=== PATIENT | male | born 1955 | race African-American/Black ===

== ENCOUNTER 2021-05-06 15:48 | Emergency (ER) | payer MEDICARE, MEDICAID ==
[~2021-05-06] VITALS: Ht 177.8 cm; Wt 74.8 kg
[2021-05-06 16:32] LABS: BASOPHILS % 0.1 % (0.0-2.0); EOSINOPHILS % 0.1 % (0.0-5.0); HEMATOCRIT. 48.8 % (42.0-52.0); HEMOGLOBIN. 16.6 g/dL (14.0-18.0); LYMPHOCYTES % 19.5 % (20.0-50.0); MEAN CORPUSCULAR HEMOGLOBIN 29.5 pg (28.0-32.0); MEAN CORPUSCULAR VOLUME 86.7 fL (80.0-94.0); MEAN PLATELET VOLUME 7.8 fl (7.4-10.4); MONOCYTES % 8.8 % (2.0-8.0); NEUTROPHILS % 71.5 % (40.0-76.0); PLATELET 234 x1000/uL (130-400); RED BLOOD CELL COUNT 5.62 mill/uL (4.7-6.1); RED CELL DISTRIBUTION WIDTH 15.7 % (11.6-14.6)
[2021-05-06 16:35] LABS: CHLORIDE 106 mEq/L (98-107)
[2021-05-06 16:39] LABS: ETHANOL BLOOD < 10 mg/dL
[2021-05-06 16:44] LABS: CREATINE KINASE 334 IU/L (39-308)
[2021-05-06 17:18] LABS: CLARITY URINE CLEAR (CLEAR); COLOR URINE YELLOW (YELLOW); KETONES URINE 1+ (NEGATIVE); LEUKOCYTE ESTERASE URINE NEGATIVE (NEGATIVE); NITRITE URINE NEGATIVE (NEGATIVE); OCCULT BLOOD URINE 1+ (NEGATIVE); PH URINE 5.5 (4.5-8.0); PROTEIN URINE 2+ (NEGATIVE); SPECIFIC GRAVITY URINE 1.029 (1.005-1.030)
[2021-05-06] MEDS ORDERED: ASPIRIN 600MG SUPP PR ONE (17:30)
[2021-05-06] MEDS ORDERED: HYDRALAZINE 20MG/ML VIAL IV ONE (17:30)
[2021-05-06 17:38] LABS: *BARBITURATES SCREEN URINE NEGATIVE (NEGATIVE)
[2021-05-06 17:39] LABS: *AMPHETAMINES SCREEN URINE NEGATIVE (NEGATIVE); *BENZODIAZEPINES SCREEN URINE NEGATIVE (NEGATIVE); *COCAINE SCREEN URINE NEGATIVE (NEGATIVE); CANNABINOID URINE SCREEN PRESUMTIVE POSITIVE (NEGATIVE); METHADONE URINE SCREEN NEGATIVE (NEGATIVE); OPIATES URINE SCREEN NEGATIVE (NEGATIVE); PHENCYCLIDINE URINE SCREEN NEGATIVE (NEGATIVE)
[2021-05-06] MEDS ORDERED: ETOMIDATE 2MG/ML 10ML VIAL IV ONE (19:45)
[2021-05-06] MEDS ORDERED: SUCCINYLCHOLINE CHLORIDE 200MG/10ML IV ONE (19:45)
[2021-05-06] MEDS ORDERED: DEXAMETHASONE 4MG/ML 1ML VIAL IV ONE (19:45)
[2021-05-06] MEDS ORDERED: MANNITOL 12.5G (25%) VIAL 50ML IV ONE (19:45)
[2021-05-06] MEDS ORDERED: MIDAZOLAM HCL 2 MG/2 ML VIAL IV ONE (20:30)
[2021-05-06] MEDS ORDERED: FENTANYL CITRATE/PF 500 MCG in SODIUM CHLORIDE 0.9% 40 ML IV PRN (20:30)
[2021-05-06] MEDS ORDERED: FENTANYL CITRATE 2,500 MCG in SODIUM CHLORIDE 0.9% 200 ML IV PRN (20:30)
[2021-05-06] MEDS ORDERED: SODIUM CHLORIDE 0.9% 250 ML IV ONE (22:00)
[2021-05-06 22:05] VITALS: BP 144/70
[2021-05-06] MEDS ORDERED: IOHEXOL-350 100 ML BOTTLE ONE (23:19)
== END 2021-05-06 22:39 | disposition admitted as inpatient to this hospital (09) ==
LOC: ER 15:48 → EDBEDREQ 17:35 → EDBEDREQTM 17:50 → EDBEDREQ 17:50 → EDBEDREQSVC 17:50 → CANBEDREQ 20:07 → ER 22:39
DX: I63.9 Cerebral infarction, unspecified (principal); I10 Essential (primary) hypertension; Z60.2 Problems related to living alone; Z98.890 Other specified postprocedural states
CPT/HCPCS: 31500; 36415; 70450; 70496; 70498; 71045; 80053; 80305; 80320; 81003; 82550; 82962; 85025; 93005; 94002; 96374; 96375; 99291; J0330; J0360; J1100; J2150; J2250; J3490; J7050; Q9967; A4315; G0480